=== PATIENT | male | born 1970 ===

== ENCOUNTER 2018-12-28 08:24 | Day surgery (SDC) | payer BC ==
[2018-12-28] MEDS ORDERED: LIDOCAINE 2% MDV (20MG/ML) 20ML VIAL IV ONE (08:25)
[2018-12-28] MEDS ORDERED: EPHEDRINE SULFATE 50 MG/ML ML IV ONE (08:25)
[2018-12-28] MEDS ORDERED: PROPOFOL 10 MG/ML VIAL IV ONE (08:25)
--- NOTE | 2018-12-29 08:31 | Operative Note ---
DATE OF SURGERY: 12/28/2018 PREOPERATIVE DIAGNOSIS: See below. POSTOPERATIVE DIAGNOSIS: See below. PROCEDURE: Failed COLONOSCOPY due to poor preparation. Indication: Colorectal cancer screening. Patient denies any family history of colon cancer and denies any current bowel issues. Intravenous sedation was administered by the Department of Anesthesiology and included Diprivan titrated to effect. PROCEDURE: Following informed consent from this alert individual, including a discussion of the risks and benefits of the procedure and opportunity for the patient to ask questions, patient was placed in the left lateral decubitus position. A digital rectal examination was performed. No abnormalities were noted. Following this, an Olympus [id number] video colonoscope was inserted into rectum without resistance. The rectal mucosa had a normal appearance, with normal folds and distensibility, as visualized; however, there was a fair amount of retained liquid and some semi-solid stool noted. The colonoscope was advanced up through the sigmoid colon, where there was a fair amount of retained stool, precluding evaluation. From this point, the coloscopy was then withdrawn. Again, visualization was quite poor due to the retained stool. The instrument was removed. The patient tolerated the procedure well and returned to recovery in stable condition. IMPRESSION: Poor colon prep, precluding colonoscopy. RECOMMENDATIONS: Patient was advised to have a 2-day preparation for repeat attempt at colonoscopy. He will also follow up with Dr. Saldana. As always, thank you for allowing me to participate in the care of your patient. CC: Dr. Shana KRAMER
== END 2018-12-28 09:55 | disposition home or self-care (01) ==
LOC: HOP 08:24
PROVIDERS: ATTEND Internal Medicine Gastroenterology
DX: Z12.11 Encounter for screening for malignant neoplasm of colon (principal); Z53.09 Procedure and treatment not carried out because of other contraindication; E11.9 Type 2 diabetes mellitus without complications
CPT/HCPCS: 00812; G0121